=== PATIENT | female | born 1990 | race Hispanic/Latino ===

== ENCOUNTER 2018-01-13 09:04 | Emergency (ER) | payer OTHER ==
--- NOTE | 2018-01-13 09:38 | Emergency Department Report ---
ED Chest Pain HPI - General Chief Complaint: Chest Pain Stated Complaint: CHEST PAIN Time Seen by Provider: 01/13/18 09:37 Source: patient Mode of arrival: Ambulatory Limitations: No Limitations - History of Present Illness Initial Comments: Patient is a 28-year-old female that presents emergency room with complaints of chest pain in the middle of her chest. Patient denies radiation. Patient states the pain is a 10 out of 10. Patient states he was discharged from a hospital which she does not know the name after being in the ICU for bradycardia and a heart condition of unknown. Patient complains of nausea and vomiting and shortness of breath. Patient states the pain is worse with exertion and better with rest. Patient states shortness of breath is better with rest and worse with exertion. Patient denies palpitations. Patient denies fever and chills. Patient denies abdominal pain. Patient dates she does not take any medications or have any past medical history. Patient denies use of drugs. Patient denies alcohol use. Patient states she smokes one pack per day. Last menstrual period was 12/20. MD Complaint: chest pain -: Sudden Onset: during rest Pain Location: substernal, left chest Pain Radiation: none Severity: severe Severity scale (0 -10): 10 Quality: sharp Consistency: constant Improves With: rest Worsens With: exertion re: nausea, vomting, diaphoresis, dyspnea, sense of impending doom Other Symptoms: denies: cough, fever, syncope, rash, acid taste in mouth, leg swelling, palpitations, burping Treatments Prior to Arrival: none Aspirin use within the Past 7 Days: (0) No - Related Data On Oral Contraceptives: No Home Medications Medication Instructions Recorded Confirmed Last Taken No Known Home Medications [No 01/13/18 01/13/18 Unknown Reported Home Medications] Allergies Allergy/AdvReac Type Severity Reaction Status Date / Time No Known Allergies Allergy Unverified 01/13/18 09:09 Heart Score - HEART Score History: Slightly suspicious EKG: Normal Age: < 45 Risk factors: No known risk factors Troponin: < normal limit HEART Score: 0 ED Review of Systems ROS: Stated complaint: CHEST PAIN Other details as noted in HPI Constitutional: denies: chills, fever Eyes: denies: eye pain, eye discharge, vision change ENT: denies: ear pain, throat pain Respiratory: denies: cough, shortness of breath, wheezing Cardiovascular: chest pain. denies: palpitations Endocrine: no symptoms reported Gastrointestinal: nausea, vomiting. denies: abdominal pain, diarrhea Genitourinary: denies: urgency, dysuria, discharge Musculoskeletal: denies: back pain, joint swelling, arthralgia Skin: denies: rash, lesions Neurological: denies: headache, weakness, paresthesias Psychiatric: denies: anxiety, depression Hematological/Lymphatic: denies: easy bleeding, easy bruising ED Past Medical Hx - Past Medical History Previous Medical History?: No - Surgical History Past Surgical History?: No - Family History Family history: no significant - Social History Smoking Status: Current Every Day Smoker Substance Use Type: Marijuana - Medications Home Medications: Home Medications Medication Instructions Recorded Confirmed Last Taken Type No Known Home Medications [No 01/13/18 01/13/18 Unknown History Reported Home Medications] ED Physical Exam - General Limitations: No Limitations General appearance: alert, in no apparent distress - Head Head exam: Present: atraumatic, normocephalic - Eye Eye exam: Present: normal appearance - ENT ENT exam: Present: mucous membranes moist - Neck Neck exam: Present: normal inspection - Respiratory Respiratory exam: Present: normal lung sounds bilaterally. Absent: respiratory distress - Cardiovascular Cardiovascular Exam: Present: regular rate, normal rhythm. Absent: systolic murmur, diastolic murmur, rubs, gallop - GI/Abdominal GI/Abdominal exam: Present: soft, normal bowel sounds - Extremities Exam Extremities exam: Present: normal inspection - Back Exam Back exam: Present: normal inspection - Neurological Exam Neurological exam: Present: alert, oriented X3 - Psychiatric Psychiatric exam: Present: normal affect, normal mood - Skin Skin exam: Present: warm, dry, intact, normal color. Absent: rash ED Course Vital Signs 01/13/18 01/13/18 01/13/18 09:09 09:18 10:00 Temperature 98.6 F Pulse Rate 46 L 47 L 54 L Respiratory 18 14 13 Rate Blood Pressure 132/87 157/80 O2 Sat by Pulse 100 100 99 Oximetry 01/13/18 01/13/18 01/13/18 11:00 12:00 12:02 Temperature Pulse Rate 44 L Respiratory 12 20 Rate Blood Pressure 157/80 130/77 O2 Sat by Pulse 99 100 Oximetry 01/13/18 01/13/18 12:56 13:00 Temperature Pulse Rate 65 Respiratory 25 H 20 Rate Blood Pressure 130/77 O2 Sat by Pulse 100 Oximetry - Reevaluation(s) Reevaluation #1: Patient complains of chest pain and states she needs something for pain. We'll give patient medications. We'll consult the PICC line team for PICC line placement due to having difficulties with IV access. 01/13/18 09:45 Reevaluation #2: PICC line placed. Patient still complaining of chest pain and intractable nausea vomiting. will Continue to adjust treatment when necessary. 01/13/18 12:05 Reevaluation #3: Discussed results with patient. Patient admitted to the hospitalist service for further evaluation treatment. Initial cardiac workup is negative. However patient will be admitted for further evaluation and treatment to the hospitalist service. Abdominal workup with CT scan shows no acute findings. CT was positive for renal calcinosis. 01/13/18 14:18 - - Consultations Consultation #1: Hospitalist consulted for admission. Dr. Pink to assume care. Hospitalist to admit patient. 01/13/18 14:18 KEELEY score - Keeley Score Age > 65: (0) No Aspirin use within the Past 7 Days: (0) No 3 or more CAD Risk Factors: (0) No 2 or more Angina events in past 24 hrs: (0) No Known CAD with more than 50% Stenosis: (0) No Elevated Cardiac Markers: (0) No ST Deviation Greater than 0.5mm: (0) No KEELEY Score: 0 ED Medical Decision Making - Lab Data Result diagrams: 01/13/18 09:20 01/13/18 09:20 - EKG Data -: EKG Interpreted by Al EKG shows normal: sinus rhythm, axis, intervals, QRS complexes, ST-T waves Rate: bradycardia - Radiology Data Radiology results: report reviewed AP CHEST: HISTORY: chest pain AP view of the chest demonstrates a normal mediastinal and cardiac contour with clear lungs and normal bony and soft tissue structures. IMPRESSION: Unremarkable AP chest. Transcribed By: TTR Dictated By: YULISA DIAZ JR, MD Electronically Authenticated By: YULISA DIAZ JR, MD Signed Date/Time: 01/13/18 7006 - Medical Decision Making Patient is a 27-year-old female that presented to the emergency room for chest pain and intractable nausea vomiting abdominal pain. Abdominal CT is negative. Nausea and vomiting has been controlled multiple doses of nausea medications. Pain is better controlled with multiple doses of Dilaudid and morphine. Patient to be admitted to the hospitalist service for further evaluation treatment and determination of her chest pain. EKG is significant for sinus bradycardia. The patient was recently in another hospital of unknown name per patient, for a cardiac condition and bradycardia. - Differential Diagnosis cp. sob n/v. drug use. gastroentertis. Critical Care Time: Yes Critical care attestation.: If time is entered above; I have spent that time in minutes in the direct care of this critically ill patient, excluding procedure time. Critical Care Time: 35 minutes spent for cc time. ED Disposition Clinical Impression: Chest pain, SOB (shortness of breath), Intractable nausea and vomiting, Bradycardia Disposition: OP ADMIT IP TO THIS HOSP Is pt being admited?: Yes Does the pt Need Aspirin: No Condition: Serious Time of Disposition: 14:22
[2018-01-13 09:46] LABS: Basophils # (Auto) 0.1 K/mm3 (0.0-0.1); Basophils % (Auto) 0.5 % (0.0-1.8); Eosinophils # (Auto) 0.2 K/mm3 (0.0-0.4); Eosinophils % (Auto) 1.6 % (0.0-4.3); Hematocrit 44.7 % (30.3-42.9); Hemoglobin 15.8 gm/dl (10.1-14.3); Lymphocytes # (Auto) 3.5 K/mm3 (1.2-5.4); Lymphocytes % (Auto) 27.8 % (13.4-35.0); Mean Corpuscular HGB Conc 35 % (30-34); Mean Corpuscular Hemoglobin 32 pg (28-32); Mean Corpuscular Volume 91 fl (79-97); Monocytes # (Auto) 0.9 K/mm3 (0.0-0.8); Monocytes % (Auto) 7.2 % (0.0-7.3); Red Blood Count 4.95 M/mm3 (3.65-5.03)
[2018-01-13 10:13] LABS: Platelet Count 250 K/mm3 (140-440)
[2018-01-13 10:26] LABS: BUN/Creatinine Ratio 22; Blood Urea Nitrogen 13 mg/dL (7-17); Calcium 9.8 mg/dL (8.4-10.2); Hemolysis Index 189
[2018-01-13] MEDS ORDERED: ZOFRAN IV ONE ×2 (10:26→11:51)
[2018-01-13] MEDS ORDERED: MORPHINE IV ONE ×2 (10:26→11:52)
--- NOTE | 2018-01-13 12:42 | XRay Report ---
AP CHEST: HISTORY: chest pain AP view of the chest demonstrates a normal mediastinal and cardiac contour with clear lungs and normal bony and soft tissue structures. IMPRESSION: Unremarkable AP chest.
[2018-01-13] MEDS ORDERED: DILAUDID IV ONE (13:05)
[2018-01-13 13:19] LABS: Bilirubin,Urine NEG (Negative); Blood,Urine NEG (Negative); Color,Urine Yellow (Yellow); Mucus,Urine FEW /HPF; Protein,Urine <15 mg/dL mg/dL (Negative); Urobilinogen,Urine < 2.0 mg/dL (<2.0)
[2018-01-13 13:26] LABS: Amphetamine Screen,Urine PRESUMPTIVE NEGATIVE; Cocaine Screen,Urine PRESUMPTIVE NEGATIVE; Methadone Screen,Urine PRESUMPTIVE NEGATIVE
[2018-01-13 13:49] LABS: Benzodiazepines Screen,Urine PRESUMPTIVE POSITIVE; Cannabinoid Screen,Urine PRESUMPTIVE POSITIVE; Opiate Screen,Urine PRESUMPTIVE POSITIVE
[2018-01-13] MEDS ORDERED: PHENERGAN PR ONE (13:50)
--- NOTE | 2018-01-13 14:15 | Cat Scan Report ---
CT ABDOMEN PELVIS WITHOUT CONTRAST: HISTORY: Nausea and vomiting. COMPARISON: none. TECHNIQUE: Helical CT in 1.25mm intervals without IV contrast. Sagittal and coronal reconstructions. FINDINGS: Lung bases: Normal. Liver: Normal. Biliary system: Normal. Pancreas: Normal. Spleen: Normal. Kidneys/ureters/bladder: The renal pyramids are hyperdense suggesting nephrocalcinosis bilaterally. No focal calyceal stone is identified. The kidneys are within normal limits otherwise. The ureters and bladder are unremarkable. Adrenal glands: Normal. Aorta: Normal. Intestines: Within normal limits. Appendix: Normal. Pelvic viscera: Normal. Ascites: None. Adenopathy: None. Musculoskeletal: Normal. IMPRESSION: No acute process is identified in the abdomen or pelvis. Findings suggestive of nephrocalcinosis bilaterally. See above.
--- NOTE | 2018-01-13 14:36 | History and Physical Report ---
History of Present Illness Chief complaint: My chest hurts History of present illness: 27 YO Female with No PMH presents to ED for evaluation of Atypical chest pain. Pt seen and evaluated in ED and treated IAW chest pain protocol. Serial cardiac enzymes, EKG, telemetry, were negative for evidence of ischemia. D dimer was negative as well. Pt medically optimzied and back to usual state of health. Pt discharged home and instructed to f/u pcp 1wk, cardiology 1wk for further care. Past History Past Medical History: No medical history Past Surgical History: No surgical history Social history: single, smoking Family history: no significant family history Medications and Allergies Allergies Allergy/AdvReac Type Severity Reaction Status Date / Time No Known Allergies Allergy Unverified 01/13/18 09:09 Home Medications Medication Instructions Recorded Confirmed Last Taken Type No Known Home Medications [No 01/13/18 01/13/18 Unknown History Reported Home Medications] Review of Systems Constitutional: no weight loss, no weight gain, no fever, no chills Ears, nose, mouth and throat: no ear pain, no ear discharge, no tinnitis, no decreased hearing, no nose pain, no nasal congestion, no nasal discharge Breasts: no change in shape, no swelling, no mass Cardiovascular: chest pain, no orthopnea, no palpitations, no rapid/irregular heart beat, no edema, no syncope, no lightheadedness, no dyspnea on exertion, no paroxysmal nocturnal dyspnea, no high blood pressure, no leg edema, no decreased exercise tolerance Respiratory: no cough, no cough with sputum, no excessive sputum, no hemoptysis , no shortness of breath Gastrointestinal: no nausea, no vomiting, no diarrhea, no constipation Genitourinary Female: no pelvic pain, no flank pain, no menorrhagia, no dysuria , no urinary frequency, no urgency Rectal: no pain, no incontinence, no bleeding Musculoskeletal: no neck stiffness, no neck pain, no shooting arm pain, no arm numbness/tingling, no low back pain, no shooting leg pain Integumentary: no rash, no pruritis, no redness, no sores, no wounds Neurological: no transient paralysis, no paralysis, no weakness, no parathesias , no numbness, no tingling, no seizures Psychiatric: no anxiety, no memory loss, no change in sleep habits, no sleep disturbances, no insomnia, no hypersomnia, no change in appetite Endocrine: no cold intolerance, no heat intolerance, no polyphagia, no excessive thirst, no polydipsia, no polyuria, no nocturia Hematologic/Lymphatic: no easy bruising, no easy bleeding, no lymphadenopathy Allergic/Immunologic: no urticaria, no allergic rhinitis, no wheezing, no persistent infections Exam - Constitutional Vitals: Temp Pulse Resp BP Pulse Ox 98.6 F 65 20 130/77 100 01/13/18 09:09 01/13/18 13:00 01/13/18 13:00 01/13/18 13:00 01/13/18 12:56 General appearance: Present: no acute distress, well-nourished - EENT Eyes: Present: PERRL ENT: hearing intact, clear oral mucosa - Neck Neck: Present: supple, normal ROM - Respiratory Respiratory effort: normal Respiratory: bilateral: CTA - Cardiovascular Heart Sounds: Present: S1 & S2. Absent: rub, click - Extremities Extremities: pulses symmetrical, No edema Peripheral Pulses: within normal limits - Abdominal General gastrointestinal: Present: soft, non-tender, non-distended, normal bowel sounds Female genitourinary: Present: normal - Integumentary Integumentary: Present: clear, warm, dry - Musculoskeletal Musculoskeletal: gait normal, strength equal bilaterally - Psychiatric Psychiatric: appropriate mood/affect, intact judgment & insight - Neurologic Neurologic: CNII-XII intact, moves all extremities Results - Labs CBC & Chem 7: 01/13/18 09:20 01/13/18 09:20 Labs: Abnormal lab results 01/13/18 01/13/18 01/13/18 Range/Units 09:20 09:20 12:39 WBC 12.5 H (4.5-11.0) K/mm3 Hgb 15.8 H (10.1-14.3) gm/dl Hct 44.7 H (30.3-42.9) % MCHC 35 H (30-34) % RDW 13.0 L (13.2-15.2) % [place] # 0.9 H (0.0-0.8) K/mm3 Seg Neutrophils # 7.9 H (1.8-7.7) K/mm3 Creatinine 0.6 L (0.7-1.2) mg/dL Urine pH 8.0 H (5.0-7.0) Assessment and Plan - Patient Problems (1) Atypical chest pain Status: Acute Plan to address problem: Serial cardaic enzymes, ekg, telemetry unremarkable. Pt discharged home instructed to f/u pcp, and cardiology for further care. (2) Malingering Status: Acute Plan to address problem: Pt complains of pain out of proportion to exam and interview.
[2018-01-13] MEDS ORDERED: PROTONIX PO ONE (14:37)
[2018-01-13] MEDS ORDERED: HALDOL IM ONE (14:52)
[2018-01-13 17:11] VITALS: BP 126/69
== END 2018-01-13 18:00 | disposition admitted as inpatient to this hospital (09) ==
LOC: ED 09:04
DX: R07.89 Other chest pain (principal); R00.1 Bradycardia, unspecified; R11.2 Nausea with vomiting, unspecified; R06.02 Shortness of breath; Z76.5 Malingerer [conscious simulation]; Z79.899 Other long term (current) drug therapy
CPT/HCPCS: 36415; 36569; 71045; 74176; 80048; 80307; 81001; 84484; 84703; 85025; 85379; 93005; 93010; 96372; 96374; 96375; 96376; 99291; J1170; J1630; J2270; J2405